=== PATIENT | female | born 1970 | race American Indian/Alaskan Native ===

== ENCOUNTER 2017-03-25 17:56 | Emergency (ER) | payer OTHER ==
[2017-03-25 19:04] LABS: Albumin 4.2 g/dL (3.9-5); Albumin/Globulin Ratio 1.1 %; Basophils % (Auto) 0.5 % (0.0-1.8); Bilirubin,Total 0.3 mg/dL (0.1-1.2); Chloride 97.8 mmol/L (98-107); Eosinophils % (Auto) 2.4 % (0.0-4.3); Hematocrit 36.7 % (30.3-42.9); Hemoglobin 12.2 gm/dl (10.1-14.3); Mean Corpuscular HGB Conc 33 % (30-34); Mean Corpuscular Hemoglobin 26 pg (28-32); Mean Corpuscular Volume 79 fl (79-97); Platelet Count 365 K/mm3 (140-440); Potassium 3.5 mmol/L (3.6-5.0); Red Blood Count 4.63 M/mm3 (3.65-5.03); Red Cell Distribution Width 15.4 % (13.2-15.2); Total Protein 7.9 g/dL (6.3-8.2); White Blood Count 9.6 K/mm3 (4.5-11.0)
[2017-03-25] MEDS ORDERED: NACL 0.9% 1000 ML 1,000 ML ONE (21:38)
[2017-03-25] MEDS ORDERED: TYLENOL PO ONE (23:20)
--- NOTE | 2017-03-25 23:27 | Emergency Department Report ---
ED Psych HPI - General Chief Complaint: Psych Stated Complaint: MH/SUICIDAL/D/A DEPENDENCY Time Seen by Provider: 03/25/17 23:13 Source: patient Mode of arrival: Ambulatory - History of Present Illness Initial Comments: 46 years old female history of depression and polysubstance abuse presented today accompanied by her with the main complaint of Flexeril overdose in an attempt to kill herself. Stated that she took 4 tablets of Flexeril at 2 PM today. Denied any other ingestion. stated that she's been using cocaine and she is a heavy drinker. No homicidal ideation. MD Complaint: feels depressed -: Gradual Associated Psychiatric Symptoms: suicidal ideation Context: recent alcohol abuse, recent drug abuse Associated Symptoms: denies other symptoms If Self Harm: admits thoughts of, has plan, has acted on plan, intentional overdose - Related Data Home Medications Medication Instructions Recorded Confirmed Last Taken Lisinopril [Zestril TAB] 5 mg PO DAILY 03/26/17 03/26/17 2 Weeks Ago 5mg Allergies Allergy/AdvReac Type Severity Reaction Status Date / Time No Known Allergies Allergy Unverified 03/25/17 18:10 ED Review of Systems ROS: Stated complaint: MH/SUICIDAL/D/A DEPENDENCY Other details as noted in HPI Comment: All other systems reviewed and negative Constitutional: denies: chills, fever Respiratory: denies: cough, shortness of breath, SOB with exertion Cardiovascular: denies: chest pain, palpitations Gastrointestinal: denies: abdominal pain, nausea, vomiting Psychiatric: depression, suicidal thoughts. denies: auditory hallucinations, visual hallucinations, homicidal thoughts ED Past Medical Hx - Past Medical History Hx Hypertension: Yes Hx CVA: Yes (TIA) Hx Psychiatric Treatment: Yes (depression,alcohol abuse,cocaine,abuse,anxiety) - Surgical History Hx Cholecystectomy: Yes Additional Surgical History: tubiligation - Social History Smoking Status: Current Every Day Smoker Substance Use Type: Alcohol, Cocaine, Marijuana, Methamphetamines - Medications Home Medications: Home Medications Medication Instructions Recorded Confirmed Last Taken Type Lisinopril [Zestril TAB] 5 mg PO DAILY 03/26/17 03/26/17 2 Weeks Ago History 5mg ED Physical Exam - General Limitations: No Limitations General appearance: alert, in no apparent distress - Head Head exam: Present: atraumatic, normocephalic, normal inspection - Eye Eye exam: Present: normal appearance, PERRL, EOMI Pupils: Present: normal accommodation - ENT ENT exam: Present: normal exam, normal orophraynx, mucous membranes moist - Neck Neck exam: Present: normal inspection, full ROM. Absent: tenderness, meningismus, lymphadenopathy, thyromegaly - Respiratory Respiratory exam: Present: normal lung sounds bilaterally. Absent: wheezes, rales, rhonchi, stridor, chest wall tenderness, accessory muscle use, decreased breath sounds, prolonged expiratory - Cardiovascular Cardiovascular Exam: Present: regular rate, normal rhythm, normal heart sounds - GI/Abdominal GI/Abdominal exam: Present: soft. Absent: tenderness, guarding, rebound, rigid , normal bowel sounds, mass, bruit, pulsatile mass, hernia - Back Exam Back exam: Present: normal inspection. Absent: CVA tenderness (R), CVA tenderness (L) - Neurological Exam Neurological exam: Present: alert, oriented X3, CN II-XII intact, normal gait, reflexes normal. Absent: motor sensory deficit - Psychiatric Psychiatric exam: Present: depressed, flat affect, suicidal ideation. Absent: agitated, anxious, manic, homicidal ideation - Skin Skin exam: Present: warm, intact, normal color ED Course Vital Signs 03/25/17 03/25/17 03/25/17 18:03 23:26 23:30 Temperature 98.8 F Pulse Rate 90 60 76 Respiratory 18 13 17 Rate Blood Pressure 189/130 134/86 Blood Pressure [Right] O2 Sat by Pulse 100 99 Oximetry 03/26/17 03/26/17 03/26/17 00:00 00:30 01:00 Temperature Pulse Rate 66 72 73 Respiratory 21 21 22 Rate Blood Pressure 127/85 116/84 122/79 Blood Pressure [Right] O2 Sat by Pulse 99 99 98 Oximetry 03/26/17 03/26/17 03/26/17 01:30 02:00 02:30 Temperature Pulse Rate 76 69 66 Respiratory 18 22 21 Rate Blood Pressure 139/81 133/82 140/78 Blood Pressure [Right] O2 Sat by Pulse 98 100 97 Oximetry 03/26/17 03/26/17 03/26/17 03:00 03:30 04:00 Temperature Pulse Rate 73 65 66 Respiratory 16 21 22 Rate Blood Pressure 136/80 132/83 134/74 Blood Pressure [Right] O2 Sat by Pulse 97 100 99 Oximetry 03/26/17 03/26/17 03/26/17 04:30 05:00 05:31 Temperature Pulse Rate 69 70 69 Respiratory 22 21 20 Rate Blood Pressure 127/85 130/84 134/81 Blood Pressure [Right] O2 Sat by Pulse 96 99 100 Oximetry 03/26/17 03/26/17 03/26/17 06:01 06:30 07:00 Temperature Pulse Rate 67 74 67 Respiratory 18 22 20 Rate Blood Pressure 113/54 125/75 118/70 Blood Pressure [Right] O2 Sat by Pulse 97 99 98 Oximetry 03/26/17 03/26/17 03/27/17 09:40 19:00 10:21 Temperature 98.0 F 98.7 F Pulse Rate 60 53 L Respiratory 16 20 18 Rate Blood Pressure Blood Pressure 138/93 138/83 [Right] O2 Sat by Pulse 100 100 100 Oximetry 03/27/17 13:32 Temperature 98.4 F Pulse Rate 58 L Respiratory 20 Rate Blood Pressure 136/65 Blood Pressure [Right] O2 Sat by Pulse 99 Oximetry - Reevaluation(s) Reevaluation #1: 03/25/17 23:28 Poison Control called and they advised patient to be observed for 6 hours EKG every 2 hours. Since ingestion was started at 2 PM patient is already medically cleared. We'll consult mental health for evaluation. ED Medical Decision Making - Lab Data Result diagrams: 03/25/17 18:25 03/25/17 18:25 Critical care attestation.: If time is entered above; I have spent that time in minutes in the direct care of this critically ill patient, excluding procedure time. ED Disposition Clinical Impression: Suicide attempt, Drug overdose, intentional Disposition: [id number]/TX-[id number] PSY HOSP/PSY UNIT Is pt being admited?: No Condition: Stable Referrals: PRIMARY CARE, [Primary Care Provider] - 3-5 Days
[2017-03-26 11:07] LABS: Urine Drugs of Abuse Note Disclamer
[2017-03-26 11:24] LABS: Bacteria,Urine 1+ /HPF (Negative)
[2017-03-26 11:25] LABS: Bilirubin,Urine NEG (Negative); Blood,Urine LG (Negative); Ketones,Urine NEG (Negative); Leukocyte Esterase,Urine NEG (Negative); Nitrite,Urine NEG (Negative); Urobilinogen,Urine < 2.0 mg/dL (<2.0)
[2017-03-26 11:27] LABS: RBC,Urine > 182.0 /HPF (0.0-6.0)
[2017-03-26] MEDS ORDERED: TYLENOL PO ONE ×2 (13:49→21:56)
--- NOTE | 2017-03-26 14:23 | Consultation ---
History of Present Illness - Reason for Consult Consult date: 03/26/17 Reason for consult: Mental Health Evaluation Requesting physician: LAM TYSON - Chief Complaint Chief complaint: "I need help" - History of Present Psychiatric Illness 46 years old female history of depression and polysubstance abuse presented today accompanied by her with the main complaint of Flexeril overdose in an attempt to kill herself. Today patient is calm, cooperative, but withdrawn during the assessment. She stated that still want to kill herself because she have no reason to live. So she decided to take multiple Flexeril pills to end her life. She stated having suicidal thoughts in the past, but never acted on them. She stated that her life is "screwed up" because of her drug and alcohol addiction. She stated getting "high" and drinking for the past 20 yrs. She stated being sober and "clean" from drugs for years previous, but relapsed. She stated that she took Zoloft in the past for depression. She denies HI's and AVH's, but rate her depression 7/10, with 10 being the worse. She admit to self medicating with recreational drugs to help her deal with the depression. She denies sleep disturbance and a poor appetite. She admit to cocaine, amphetamines, and marijuana use and excessive alcohol use. She stated her last drink was 2 days ago. She still endorses SI's. Medications and Allergies Allergies Allergy/AdvReac Type Severity Reaction Status Date / Time No Known Allergies Allergy Unverified 03/25/17 18:10 Home Medications Medication Instructions Recorded Confirmed Last Taken Type Lisinopril [Zestril TAB] 5 mg PO DAILY 03/26/17 03/26/17 2 Weeks Ago History 5mg Mental Status Exam - Vital signs Last Vital Signs Temp 98.0 F 03/26/17 09:40 Pulse 60 03/26/17 09:40 Resp 16 03/26/17 09:40 BP 138/93 03/26/17 09:40 Pulse Ox 100 03/26/17 09:40 - Exam Narrative exam: ROS: (+) depression MSE: Appearance: calm, cooperative Behavior: regular eye contact Speech: regular rate and tone Mood: "depressed" Affect: congruent to mood Thought Process: linear Thought Content: denies SI's and AVH's Motor Activity: lying in bed Cognition: A/Ox 3 Insight: variable Judgment: variable Results Result Diagrams: 03/25/17 18:25 03/25/17 18:25 Abnormal lab results 03/25/17 03/25/17 03/25/17 Range/Units 18:25 18:25 18:25 MCH 26 L (28-32) pg RDW 15.4 H (13.2-15.2) % Potassium 3.5 L (3.6-5.0) mmol/L Chloride 97.8 L (98-107) mmol/L Ur Specific [place] (1.003-1.030) Urine WBC (Auto) (0.0-6.0) /HPF Salicylates < 0.3 L (2.8-20.0) mg/dL 03/26/17 Range/Units 11:00 MCH (28-32) pg RDW (13.2-15.2) % Potassium (3.6-5.0) mmol/L Chloride (98-107) mmol/L Ur Specific [place] 1.032 H (1.003-1.030) Urine WBC (Auto) 45.0 H (0.0-6.0) /HPF Salicylates (2.8-20.0) mg/dL All other labs normal. Assessment and Plan Assessment and plan: Impression: Historical Dx: Depression. MDD severe type. Substance Use DO ( cocaine, marijuana, amphetamines). Alcohol Use DO. Today patient is calm, cooperative, but withdrawn during the assessment. Positive for cocaine, amphetamines, and marijuana. Endorses SI's. No acute withdrawals noted (etoh). DDx: R/O Bipolar DO, R/O Substance Induced Mood DO Recommendation/Plan: Continue 1013 with placement to inpatient psy services. Start Zoloft 50 mg PO daily for depression. Discussed possible suicidality/ medication induced jermaine with patient reference Zoloft.
[2017-03-26] MEDS: ZOLOFT PO SCH (14:51)
[2017-03-27] MEDS: ZOLOFT PO SCH (10:32)
--- NOTE | 2017-03-27 13:06 | Progress Note ---
Subjective - Reason for Consult Consult date: 03/27/17 Reason for consult: Psychiatry Follow-up - Chief Complaint Chief complaint: "When will I be leaving" 46 years old female history of depression and polysubstance abuse presented today accompanied by her with the main complaint of Flexeril overdose in an attempt to kill herself. Today patient is calm and cooperative during the assessment. She stated that she would like to go to a treatment facility. She would not confirm or deny SI's. She is adamant about wanting help for her addictions (substance/alcohol). She denies HI's and AVH's. She rate her depression 7/10, with 10 being the worse. She denies any side effects of her medications. Mental Status Exam - Vital signs Last Vital Signs Temp 98.7 F 03/26/17 19:00 Pulse 53 L 03/26/17 19:00 Resp 18 03/27/17 10:21 BP 138/83 03/26/17 19:00 Pulse Ox 100 03/27/17 10:21 - Exam Narrative exam: MSE: Appearance: calm, cooperative Behavior: regular eye contact Speech: regular rate and tone Mood: "depressed" Affect: congruent to mood Thought Process: linear Thought Content: denies SI's and AVH's Motor Activity: lying in bed Cognition: A/Ox 3 Insight: variable Judgment: variable Assessment and Plan Impression: Historical Dx: Depression. MDD severe type. Substance Use DO ( cocaine, marijuana, amphetamines). Alcohol Use DO. Today patient is calm and cooperative during the assessment. Positive for cocaine, amphetamines, and marijuana. Passive SI's. No acute withdrawals noted (etoh). Recommendation/Plan: Continue 1013 with placement to [facility] today pending transportation. Continue Zoloft 50 mg PO daily for depression. Discussed possible suicidality/medication induced jermaine with patient reference Zoloft.
[2017-03-27 13:33] VITALS: BP 136/65
== END 2017-03-27 13:33 ==
LOC: EEVIPCON 17:56 → ED 17:56
DX: T48.1X2A Poisoning by skeletal muscle relaxants [neuromuscular blocking agents], intentional self-harm, initial encounter (principal); Z86.73 Personal history of transient ischemic attack (TIA), and cerebral infarction without residual deficits; F32.9 Major depressive disorder, single episode, unspecified; F12.10 Cannabis abuse, uncomplicated; F14.10 Cocaine abuse, uncomplicated; F41.9 Anxiety disorder, unspecified; F17.200 Nicotine dependence, unspecified, uncomplicated; F19.10 Other psychoactive substance abuse, uncomplicated
CPT/HCPCS: 36415; 80053; 80307; 81001; 85025; 93005; 93010; 99285; G0480; J7030; 80320